=== PATIENT | male | born 1960 | race Caucasian/White ===

== ENCOUNTER → 2020-09-28 14:06 | Outpatient (CLI) | payer MEDICARE, SELFPAY ==
[2020-09-28 15:33] LABS: Coronavirus 19 IgG Antibody Negative (Negative); Coronavirus 19 IgM Antibody Negative (Negative)
== END ==
PROVIDERS: Visit Provider Surgery
DX: Z01.812 Encounter for preprocedural laboratory examination (principal); Z11.52 Encounter for screening for COVID-19; Z12.11 Encounter for screening for malignant neoplasm of colon
CPT/HCPCS: 36415; 86328

== ENCOUNTER 2020-10-01 09:13 | Day surgery (SDC) | payer MEDICARE, SELFPAY ==
[2020-09-29 11:00] VITALS: BMI 21.1
[2020-10-01 09:49] VITALS: BP 165/83; PULSE 58; RESP 18; TEMP 36.3; O2SAT 100
--- NOTE | 2020-10-01 09:50 | P.PN_ITS ---
[facility] Anesthesia Checklist - Patient Identification Patient Identification: Arm Band, Verbal (Name & ) - Structural Data Admitted From: Home Planned Operative Procedure/s: colon Consent for Planned Operative Procedure(s) Verified: Yes Verified Documents: History and Physical - NPO Status Verified Time NPO: 00:00 - Additional verifications Patient : No Anesthesia Reactions: No Hx Blood Transfusions: No Blood Transfusion Reaction: No Cephalosporin Allergy: No Previous Colonoscopy: No - Cardiovascular Assessment Heart Sounds: S1 & S2 Pulse Strength: Baseline Peripheral Edema: No - Airway Assessment C-Spine Mobility Assessed: Yes TMJ Mobility Assessed: Yes Dentition: Good Dentition - Neurological Assessment Level of Consciousness: Awake, Alert, Appropriate Hx Seizures: No Numbness or tingling in extremities: No - Anesthesia Plan Anesthesia Risk discussed: Yes Anesthesia Plan: Verified ASA Class: II Anesthesia Type: MAC [facility] History I have reviewed the patient's past medical history: Yes Medical History: Denies:: Cancer, Diabetes Mellitus Type 1, Diabetes Mellitus Type 2, Internal Pacemaker, MRSA *Have you ever received a pneumonia vaccine?: No *Have you received a flu vaccine this season?: No Anesthesia experience/problems:: none Other Surgeries: Yes: Hernia Repair, Other. No: Pacemaker Amputation: No Fractures: No - *Social History Last grade of school completed: High school graduate Smoking Status: Never smoker Alcohol Intake: never Substance Use Type: denies use *Occupational Status:: disabled Housing: house Household Members: none *Travel in the last 8 weeks: None Family Hx:: Cancer
[2020-10-01 10:03] VITALS: O2SAT 100
[2020-10-01 10:58] VITALS: BP 84/51; PULSE 72; RESP 18; TEMP 36.5; O2SAT 96
--- NOTE | 2020-10-01 11:02 | P.PCN_ITS ---
- Procedure: Date: 10/01/20 Patient Date of :: 1960 Procedure Performed:: Colonoscopy with polypectomy Indications:: Screening Performing Provider:: Forrest Sheridan MD Referring Provider:: . Sedation:: Monitored anesthesia care Procedure:: After informed consent was obtained the patient was taken to the endoscopy suite. Sedation ensued after the patient was transferred to the left lateral decubitus position. Pulse, blood pressure, and oxygen saturation were monitored throughout the procedure. Digital rectal exam revealed no significant ab normality. The colonoscope was placed in position. The entire colon was evaluated. The colonoscope was carefully removed and the patient was transferred to recovery in stable condition. Please see findings and specimens below for detail. Findings:: Bowel preparation moderate Profound lack of relaxation Somewhat nodular prostate Hemorrhoidal cushions Complex polyps (see specimens) Specimens:: Polyp at 30 cm Large complex nodular pedunculated polyp at 15 cm (snare) Recommendations:: Timing of repeat colonoscopy is pending pathology but will likely be around 1 year secondary to profound lack of relaxation limiting visualization and size/nature of polyp at 15 cm. Complications:: No immediate Estimated blood obtained (mL): 1
[2020-10-01 11:10] VITALS: BP 82/42; PULSE 53; RESP 18; O2SAT 97
[2020-10-01 11:20] VITALS: BP 108/56; BP 110/57; PULSE 50; PULSE 53; RESP 18; O2SAT 97
[2020-10-01 11:50] VITALS: BP 122/56; PULSE 54; RESP 18; O2SAT 99
== END 2020-10-01 11:50 | disposition home or self-care (01) ==
LOC: OUTP 09:15
PROVIDERS: PCP Family Medicine; Visit Provider Surgery
PROC: 0DJD8ZZ Inspection of Lower Intestinal Tract, Via Natural or Artificial Opening Endoscopic (ICD-10-PCS; principal; 2020-10-01 10:30)
DX: Z12.11 Encounter for screening for malignant neoplasm of colon (principal); K63.5 Polyp of colon; K64.9 Unspecified hemorrhoids; Z80.9 Family history of malignant neoplasm, unspecified; N40.2 Nodular prostate without lower urinary tract symptoms
CPT/HCPCS: 45385; 88305

== ENCOUNTER → 2022-01-01 10:39 | Outpatient (CLI) | payer MEDICARE, SELFPAY | PROVIDERS: Visit Provider Surgery | DX: Z01.812 Encounter for preprocedural laboratory examination (principal); Z11.52 Encounter for screening for COVID-19 | CPT/HCPCS: C9803; U0003; U0005 ==

== ENCOUNTER 2022-01-04 07:55 | Day surgery (SDC) | payer MEDICARE, SELFPAY ==
[2021-12-30 12:41] VITALS: BMI 21.1
[2022-01-04] VITALS (7 sets, daily range): BP systolic 90–141; BP diastolic 55–83; PULSE 48–66; RESP 16; TEMP 36.1–36.6; O2SAT 96–99
--- NOTE | 2022-01-04 08:31 | P.PN_ITS ---
[facility] Anesthesia Checklist - Patient Identification Patient Identification: Arm Band, Verbal (Name & ) - Structural Data Admitted From: Home Planned Operative Procedure/s: Colonoscopy Consent for Planned Operative Procedure(s) Verified: Yes Verified Documents: Surgical Consent - NPO Status Verified Time NPO: 04:00 - Additional verifications Anesthesia Reactions: No Hx Blood Transfusions: No Blood Transfusion Reaction: No - Airway Assessment C-Spine Mobility Assessed: Yes TMJ Mobility Assessed: Yes Dentition: Good Dentition - Neurological Assessment Level of Consciousness: Awake, Alert, Appropriate - Anesthesia Plan Anesthesia Risk discussed: Yes ASA Class: II Anesthesia Type: MAC [facility] History I have reviewed the patient's past medical history: Yes Medical History: Denies:: Cancer, Diabetes Mellitus Type 1, Diabetes Mellitus Type 2, Internal Pacemaker, MRSA, Seizures *Have you ever received a pneumonia vaccine?: No *Have you received a flu vaccine this season?: No Other Medical History: Denies: Blood Transfusion Reaction Anesthesia experience/problems:: none Other Surgeries: Yes: Colonoscopy, Hernia Repair, Other. No: Pacemaker Amputation: No Fractures: No - *Social History Last grade of school completed: 11th or 12th Smoking Status: Never smoker Alcohol Intake: never Substance Use Type: denies use *Occupational Status:: disabled Housing: house Household Members: none *Travel in the last 8 weeks: None Family Hx:: Cancer
--- NOTE | 2022-01-04 09:29 | [facility].SCOPE ---
- Procedure: Date: 01/04/22 Patient Date of :: 1960 Procedure Performed:: Colonoscopy with polypectomy by means other than snare Indications:: History of colon polyps. Note: Large complex pedunculated polyp at 15 cm excised in September 2020. Limited visualization of prior colonoscopy. Performing Provider:: Forrest Sheridan MD Referring Provider:: . Sedation:: Monitored anesthesia care Procedure:: After informed consent was obtained the patient was taken to the endoscopy suite. Sedation ensued after the patient was transferred to the left lateral decubitus position. Pulse, blood pressure, and oxygen saturation were monitored throughout the procedure. Digital rectal exam revealed no significant abnormality. The colonoscope was placed in position. The entire colon was evaluated. The colonoscope was carefully removed and the patient was transferred to recovery in stable condition. Please see findings and specimens below for detail. Findings:: Bowel preparation relatively poor Somewhat asymmetric prostate (more prominent on the left) Fairly significant lack of relaxation Small right colon polyp Specimens:: Right colon polyp (cold biopsy forceps) Recommendations:: Timing of repeat colonoscopy is pending pathology but likely be around 2 years secondary to history of significant polyps and ongoing limitations in visualization (limited bowel preparation and lack of relaxation). Complications:: No immediate Estimated blood obtained (mL): 1
== END 2022-01-04 10:12 | disposition home or self-care (01) ==
LOC: OUTP 07:57
PROVIDERS: PCP Family Medicine; Visit Provider Surgery
PROC: 0DJD8ZZ Inspection of Lower Intestinal Tract, Via Natural or Artificial Opening Endoscopic (ICD-10-PCS; principal; 2022-01-04 09:30)
DX: Z86.010 Personal history of colon polyps; N40.2 Nodular prostate without lower urinary tract symptoms; K63.5 Polyp of colon; Z80.9 Family history of malignant neoplasm, unspecified
CPT/HCPCS: 45380; 88305